=== PATIENT | male | born 1990 | race Caucasian/White ===

== ENCOUNTER 2017-11-09 13:24 | Emergency (ER) | payer OTHER ==
[~2017-11-09] VITALS: Ht 177.8 cm; Wt 81.6 kg
[2017-11-09] MEDS ORDERED: NAPROSYN500 MG PO (15:36)
== END 2017-11-09 15:38 | disposition home or self-care (01) ==
LOC: ED 13:24
DX: M54.6 Pain in thoracic spine (principal); V86.56XA Driver of dirt bike or motor/cross bike injured in nontraffic accident, initial encounter; Y93.89 Activity, other specified; Y92.89 Other specified places as the place of occurrence of the external cause; Y99.8 Other external cause status